=== PATIENT | female | born 2000 | race Caucasian/White ===

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

== ENCOUNTER 2020-03-09 18:00 | Emergency (ER) | payer MEDICAID, OTHER ==
[~2020-03-09] VITALS: Ht 162.6 cm; Wt 61.0 kg
[~2020-03-09 18:00] MED LIST: KEPP500 PO
[2020-03-09] MEDS ORDERED: LEVETIRACETAM 500MG PREMIX 100 ML IV ONE (19:45)
[2020-03-09 20:47] LABS: BASOPHILS % 1.1 % (0.0-2.0); EOSINOPHILS % 0.9 % (0.0-5.0); HEMATOCRIT. 36.2 % (36.0-48.0); HEMOGLOBIN. 12.9 g/dL (12.0-16.0); MEAN CORPUSCULAR HEMOGLOBIN 32.3 pg (28.0-32.0); MEAN CORPUSCULAR VOLUME 90.5 fL (81.0-99.0); MEAN PLATELET VOLUME 8.4 fl (7.4-10.4); PLATELET 227 x1000/uL (130-400); RED BLOOD CELL COUNT 3.99 mill/uL (4.2-5.4); RED CELL DISTRIBUTION WIDTH 13.2 % (11.6-14.6)
[2020-03-09 20:54] LABS: CHLORIDE 108 mEq/L (98-107)
[2020-03-09 21:01] LABS: HCG SCREEN NEGATIVE
[2020-03-09 22:30] VITALS: BP 109/71
== END 2020-03-09 22:40 | disposition home or self-care (01) ==
LOC: ER 18:00
DX: R56.9 Unspecified convulsions (principal)
CPT/HCPCS: 36415; 80053; 84703; 85025; 93005; 96365; 99284; J1953

== ENCOUNTER 2020-08-23 20:23 | Emergency (ER) | payer SELFPAY ==
[~2020-08-23] VITALS: Ht 160 cm; Wt 50.0 kg
[2020-08-23 21:11] VITALS: BP 108/66
[2020-08-23] MEDS ORDERED: LEVETIRACETAM 500MG PREMIX 100 ML IV ONE (21:30)
[2020-08-23] MEDS ORDERED: SODIUM CHLORIDE 0.9% 1,000 ML IV ONE (21:30)
== END 2020-08-23 22:16 | disposition left against medical advice (07) ==
LOC: ER 20:23
DX: R56.9 Unspecified convulsions (principal)
CPT/HCPCS: 99283; J7030

== ENCOUNTER 2023-05-16 21:49 | Emergency (ER) | payer OTHER ==
[~2023-05-16] VITALS: Ht 160 cm; Wt 46.0 kg
[~2023-05-16 21:49] MED LIST changes: +FERROUS SULFATE; -KEPP500 PO; +PRENATAL VITAMINS
[2023-05-16 21:58] VITALS: BP 126/64; PULSE 80; RESP 16; TEMP 97.9; O2SAT 100
== END 2023-05-17 00:23 | disposition left against medical advice (07) ==
LOC: ER 22:07
DX: R56.9 Unspecified convulsions (principal); Z88.0 Allergy status to penicillin
CPT/HCPCS: 82962; 99283